=== PATIENT | male | born 1980 | race Native Hawaiian/Other Pacific Islander ===

== ENCOUNTER 2017-09-02 08:03 | Emergency (ER) | payer OTHER ==
[~2017-09-02] VITALS: Ht 185.4 cm; Wt 86.2 kg
[2017-09-02 08:11] VITALS: TEMP 97.8
[2017-09-02 10:21] VITALS: BP 127/80
== END 2017-09-02 10:22 | disposition home or self-care (01) ==
LOC: ED 08:03
DX: M76.892 Other specified enthesopathies of left lower limb, excluding foot (principal)
CPT/HCPCS: 85379; 99283

== ENCOUNTER 2018-02-19 13:04 | Emergency (ER) | payer OTHER ==
[~2018-02-19] VITALS: Ht 185.4 cm; Wt 86.2 kg
[2018-02-19 14:12] VITALS: BP 139/80
== END 2018-02-19 14:12 | disposition home or self-care (01) ==
LOC: ED 13:04
DX: R07.89 Other chest pain (principal); M79.1 Myalgia
CPT/HCPCS: 99282

== ENCOUNTER 2018-06-12 15:27 | Emergency (ER) | payer OTHER ==
[~2018-06-12] VITALS: Ht 185.4 cm; Wt 81.6 kg
[2018-06-12 15:30] VITALS: TEMP 99
[2018-06-12 17:22] VITALS: BP 118/74
== END 2018-06-12 17:22 | disposition home or self-care (01) ==
LOC: ED 15:27
DX: L97.829 Non-pressure chronic ulcer of other part of left lower leg with unspecified severity (principal); L97.819 Non-pressure chronic ulcer of other part of right lower leg with unspecified severity; L03.116 Cellulitis of left lower limb; L03.115 Cellulitis of right lower limb; M79.604 Pain in right leg
CPT/HCPCS: 90715; 96372; 99282

== ENCOUNTER 2019-03-02 07:30 | Emergency (ER) | payer OTHER ==
[~2019-03-02] VITALS: Ht 185.4 cm; Wt 81.6 kg
[2019-03-02 07:30] VITALS: TEMP 97.7
[2019-03-02 08:13] LABS: POTASSIUM 3.9 mmol/L (3.6-5.2)
[2019-03-02 08:17] LABS: PLATELET COUNT 301 K/uL (142-355)
[2019-03-02 11:45] VITALS: BP 119/68
== END 2019-03-02 11:45 | disposition home or self-care (01) ==
LOC: ED 07:30
PROVIDERS: Emergency Medicine
DX: R10.11 Right upper quadrant pain (principal); R10.31 Right lower quadrant pain
CPT/HCPCS: 36415; 80053; 80307; 81000; 82150; 83690; 85027; 96365; 96374; 96375; 99284; J1885; J2405; Q9963

== ENCOUNTER 2022-03-28 10:42 | Emergency (ER) | payer OTHER ==
[~2022-03-28] VITALS: Ht 185.4 cm; Wt 81.6 kg
[2022-03-28 14:10] VITALS: BP 105/66; TEMP 97.4
== END 2022-03-28 14:10 | disposition home or self-care (01) ==
LOC: ED 10:42
DX: Z87.820 Personal history of traumatic brain injury (principal); Z87.828 Personal history of other (healed) physical injury and trauma; G82.53 Quadriplegia, C5-C7 complete; M24.542 Contracture, left hand; M24.541 Contracture, right hand; L89.154 Pressure ulcer of sacral region, stage 4; L89.624 Pressure ulcer of left heel, stage 4; L89.614 Pressure ulcer of right heel, stage 4; L89.112 Pressure ulcer of right upper back, stage 2
CPT/HCPCS: 96372; 99283; J0696; J1170; J2405